=== PATIENT | male | born 1990 ===

== ENCOUNTER 2022-11-08 21:00 | Emergency (ER) | payer BC ==
[~2022-11-08] VITALS: Ht 175.3 cm; Wt 93.0 kg
== END 2022-11-08 22:06 | disposition home or self-care (01) ==
LOC: ER 21:00
DX: S41.112A Laceration without foreign body of left upper arm, initial encounter (principal); S41.111A Laceration without foreign body of right upper arm, initial encounter; W45.8XXA Other foreign body or object entering through skin, initial encounter; Y93.39 Activity, other involving climbing, rappelling and jumping off; Y92.89 Other specified places as the place of occurrence of the external cause; Y99.9 Unspecified external cause status